=== PATIENT | female | born 1980 | race African-American/Black ===

== ENCOUNTER 2020-09-16 19:56 | Emergency (ER) | payer OTHER ==
[~2020-09-16] VITALS: Ht 175.3 cm; Wt 86.2 kg
[2020-09-16 22:12] VITALS: BP 128/70
[2020-09-16] MEDS ORDERED: LIDOCAINE 1% HCL (LOCAL ANESTH.) INJ 20ML MDV IJ ONE (23:30)
== END 2020-09-17 00:05 | disposition home or self-care (01) ==
LOC: ER 19:58
DX: S51.812A Laceration without foreign body of left forearm, initial encounter (principal); W27.8XXA Contact with other nonpowered hand tool, initial encounter; Y93.89 Activity, other specified; Y92.89 Other specified places as the place of occurrence of the external cause; Y99.8 Other external cause status
CPT/HCPCS: 12001; 73090; 81002; 99283; J2001